=== PATIENT | male | born 1985 | race Caucasian/White ===

== ENCOUNTER 2021-06-23 12:09 | Inpatient (IN) | payer MEDICAID, SELFPAY ==
[~2021-06-23] VITALS: Ht 175.3 cm; Wt 72.6 kg
[2021-06-23 12:13] VITALS: BP_SYST 135
[2021-06-23] MEDS ORDERED: NACL 0.9% 1,000 ML IV ONE (12:30)
[2021-06-23] MEDS ORDERED: ONDANSETRON HCL 4 MG/2 ML VIAL IVP ONE ×2 (12:30→15:45)
[2021-06-23] MEDS ORDERED: QUET200T PO (12:58)
[2021-06-23] MEDS ORDERED: HAL5 PO (12:58)
[2021-06-23] MEDS ORDERED: SER100 PO (12:58)
[2021-06-23] MEDS ORDERED: MIRT-91 PO (12:58)
[2021-06-23 13:27] LABS: BASOPHILS % (AUTO) 0.3 % (0.0-2.0); EOSINOPHILS % (AUTO) 0.1 % (0.0-4.0); HEMATOCRIT 45.6 % (36-54); HEMOGLOBIN 15.7 g/dL (14.0-18.0); LYMPHOCYTES # (AUTO) 3.4 K/uL (1.0-5.5); LYMPHOCYTES % (AUTO) 27.5 % (20.5-51.5); MEAN CORPUSCULAR HEMOGLOBIN 32 pg (27-31); MEAN CORPUSCULAR HGB CONC 34 % (32-36); MEAN CORPUSCULAR VOLUME 94 fL (79.0-98.0); MONOCYTES # (AUTO) 0.8 K/uL (0.0-1.0); MONOCYTES % (AUTO) 6.3 % (1.7-9.3); NEUTROPHILS # (AUTO) 8.2 K/uL (1.8-7.7); NEUTROPHILS % (AUTO) 65.8 % (40.0-70.0); PLATELET COUNT (AUTO) 312 K/uL (130-430); RED BLOOD CELL COUNT(AUTO) 4.85 MIL/uL (4.2-6.2); RED CELL DISTRIBUTION WIDTH 14.8 % (9.0-15.0); WHITE BLOOD COUNT (AUTO) 12.4 K/uL (4.8-10.8)
[2021-06-23 14:08] LABS: CALCIUM 8.4 mg/dL (8.4-11.0); CREATININE 0.88 mg/dL (0.55-1.30); POTASSIUM 3.3 mmol/L (3.5-5.1)
[2021-06-23 14:23] LABS: ALBUMIN 3.9 g/dL (3.4-4.8); TOTAL BILIRUBIN 0.1 mg/dL (0.0-1.0)
[2021-06-23] MEDS ORDERED: LORazepam 2 MG/ML VIAL IVP ONE ×2 (14:30→19:00)
[2021-06-23] MEDS ORDERED: ONDANSETRON HCL 4 MG/2 ML VIAL ONE (15:35)
[2021-06-23] MEDS ORDERED: THIAMINE HCL 100 MG in NS 50 ML IV ONE (18:30)
[2021-06-23] MEDS ORDERED: THIAMINE HCL 100 MG/ML VIAL ONE (18:31)
[2021-06-23] MEDS ORDERED: BANANA BAG 1 EA, MVI 10 ML, THIAMINE HCL 100 MG, FOLIC ACID 1 MG, MAGNESIUM SULFATE 1 G... IV SCH ×5 (19:30)
[2021-06-23] MEDS ORDERED: THIAMINE HCL 100 MG, MAGNESIUM SULFATE 1 GM in NS 100 ML IV ONE (19:30)
[2021-06-23] MEDS ORDERED: FOLIC ACID 1 MG, MVI 10 ML in NACL 0.9% 1,000 ML IV ONE (19:30)
[2021-06-23] MEDS ORDERED: PANTOPRAZOLE SODIUM 40 MG/VIAL (PROTONIX) IVP ONE (21:00)
[2021-06-23 22:19] VITALS: BP_SYST 112
[2021-06-23 22:35] VITALS: BP_SYST 112
[2021-06-23] MEDS ORDERED: NALOXONE HCL 0.4 MG/ML AMP (NARCAN) IVP PRN (22:45)
[2021-06-23] MEDS ORDERED: chlordiazePOXIDE HCL 25 MG CAPSULE PO PRN (22:45)
[2021-06-23] MEDS: ONDANSETRON HCL 4 MG/2 ML VIAL IVP PRN (23:03)
[2021-06-23] MEDS: MORPHINE 2 MG/ML INJ. SYRINGE IVP PRN (23:04)
[2021-06-24] MEDS: MORPHINE 2 MG/ML INJ. SYRINGE IVP PRN (03:28)
[2021-06-24] MEDS: ONDANSETRON HCL 4 MG/2 ML VIAL IVP PRN (05:05)
[2021-06-24 07:01] LABS: BASOPHILS % (AUTO) 0.2 % (0.0-2.0); EOSINOPHILS # (AUTO) 0.1 K/uL (0.0-0.4); EOSINOPHILS % (AUTO) 0.5 % (0.0-4.0); HEMATOCRIT 37.1 % (36-54); HEMOGLOBIN 12.7 g/dL (14.0-18.0); LYMPHOCYTES # (AUTO) 2.8 K/uL (1.0-5.5); LYMPHOCYTES % (AUTO) 25.7 % (20.5-51.5); MEAN CORPUSCULAR HEMOGLOBIN 33 pg (27-31); MEAN CORPUSCULAR HGB CONC 34 % (32-36); MEAN CORPUSCULAR VOLUME 95 fL (79.0-98.0); MONOCYTES % (AUTO) 9.1 % (1.7-9.3); NEUTROPHILS # (AUTO) 6.9 K/uL (1.8-7.7); NEUTROPHILS % (AUTO) 64.5 % (40.0-70.0); PLATELET COUNT (AUTO) 273 K/uL (130-430); RED BLOOD CELL COUNT(AUTO) 3.91 MIL/uL (4.2-6.2); RED CELL DISTRIBUTION WIDTH 14.7 % (9.0-15.0); WHITE BLOOD COUNT (AUTO) 10.7 K/uL (4.8-10.8)
[2021-06-24 07:58] VITALS: BP_SYST 124
[2021-06-24] MEDS: MIRTAZAPINE 15 MG TABLET PO SCH (08:05)
[2021-06-24] MEDS: QUEtiapine FUMARATE 100 MG TABLET PO SCH (08:05)
[2021-06-24] MEDS: PANTOPRAZOLE SODIUM 40 MG/VIAL (PROTONIX) IVP SCH ×2 (08:05→21:22)
[2021-06-24] MEDS: THIAMINE HCL 100 MG TABLET PO SCH (08:05)
[2021-06-24] MEDS: HALOPERIDOL 5 MG TABLET (HALDOL) PO SCH ×3 (08:12→21:00)
[2021-06-24 08:33] LABS: CALCIUM 7.7 mg/dL (8.4-11.0); CREATININE 0.87 mg/dL (0.55-1.30); POTASSIUM 3.3 mmol/L (3.5-5.1)
[2021-06-24 11:30] VITALS: BP_SYST 119
[2021-06-24 15:38] VITALS: BP_SYST 113
[2021-06-24 20:00] VITALS: BP_SYST 129
[2021-06-24] MEDS ORDERED: QUEtiapine FUMARATE 100 MG TABLET PO SCH (21:00)
[2021-06-25 00:37] VITALS: BP_SYST 113
[2021-06-25 07:45] VITALS: BP_SYST 128
[2021-06-25] MEDS: PANTOPRAZOLE SODIUM 40 MG/VIAL (PROTONIX) IVP SCH (08:53)
[2021-06-25] MEDS: MIRTAZAPINE 15 MG TABLET PO SCH (08:53)
[2021-06-25] MEDS: THIAMINE HCL 100 MG TABLET PO SCH (08:53)
[2021-06-25] MEDS: QUEtiapine FUMARATE 100 MG TABLET PO SCH (08:54)
[2021-06-25] MEDS: HALOPERIDOL 5 MG TABLET (HALDOL) PO SCH ×2 (08:58→15:00)
[2021-06-25 11:12] VITALS: BP_SYST 139
[2021-06-25 15:01] LABS: CALCIUM 7.8 mg/dL (8.4-11.0); CREATININE 0.93 mg/dL (0.55-1.30); POTASSIUM 3.5 mmol/L (3.5-5.1)
[2021-06-25 15:59] VITALS: BP_SYST 126
[2021-06-25 16:08] VITALS: BP_SYST 126
== END 2021-06-25 17:10 | disposition home or self-care (01) | DRG 775 ==
LOC: SED 12:09 → STU 19:18
PROVIDERS: ADMIT Family Medicine; ATTEND Family Medicine
DX: F10.229 Alcohol dependence with intoxication, unspecified (principal); F29 Unspecified psychosis not due to a substance or known physiological condition; Z20.822 Contact with and (suspected) exposure to COVID-19; Y90.9 Presence of alcohol in blood, level not specified; Z79.899 Other long term (current) drug therapy
CPT/HCPCS: 36415; 70450-TC; 71045; 76376; 80048; 80053; 82150; 83690; 83735; 84484; 85025; 87081; 93005; 96365; 96366; 96367; 96375; 96376; 99285; C9113; G0378; G0482; J2060; J2270; J2405; J3411; J3475; J3490; J7030